=== PATIENT | male | born 1935 | race Caucasian/White ===

== ENCOUNTER 2023-01-02 15:31 | Inpatient (IN) | payer MEDICARE ==
[~2023-01-02] VITALS: Ht 177.8 cm; Wt 77.1 kg
[2023-01-02] MEDS ORDERED: SODIUM CHLORIDE 0.9% 1000ML 1,000 ML IV STA (15:47)
[2023-01-02 16:13] LABS: BASOPHILS % 0.2 % (0.0-1.0); EOSINOPHILS % 0.1 % (0.0-6.0); HEMATOCRIT 47.5 % (38.2-49.6); HEMOGLOBIN 17.2 g/dL (14.0-18.0); LYMPHOCYTES # (AUTO) 2.2 (1.0-3.2); LYMPHOCYTES % 17.6 % (18.0-39.1); MEAN CORPUSCULAR HEMOGLOBIN 34.5 pg (28-32); MEAN CORPUSCULAR HGB CONC 36.2 g/dL (31-35); MEAN CORPUSCULAR VOLUME 95.4 fL (81-99); MONOCYTES # (AUTO) 0.7 (0.2-0.8); MONOCYTES % 5.4 % (4.4-11.3); NEUTROPHILS # (AUTO) 9.7 (2.1-6.9); NEUTROPHILS % 76.3 % (38.7-80.0); PLATELET COUNT 269 x10e3/uL (140-360); RED BLOOD COUNT 4.98 x10e6/uL (4.3-5.7); RED CELL DISTRIBUTION WIDTH 11.9 % (11.7-14.4)
[2023-01-02 16:22] LABS: INR 1.05; PROTHROMBIN TIME 14.2 seconds (11.9-14.5)
[2023-01-02 16:33] LABS: ALANINE AMINOTRANSFERASE 69 IU/L (0-55); ALBUMIN 3.6 g/dL (3.5-5.0); ALBUMIN/GLOBULIN RATIO 0.9 (0.8-2.0); ALKALINE PHOSPHATASE 139 IU/L (40-150); ANION GAP 25.2 mmol/L (8-16); BLOOD UREA NITROGEN 29 mg/dL (7-26); BUN/CREATININE RATIO 28 (6-25); CALCIUM 9.6 mg/dL (8.4-10.2); CARBON DIOXIDE 17 mmol/L (22-29); CHLORIDE 99 mmol/L (98-107); CREATINE KINASE 162 IU/L (30-200); CREATININE, SERUM 1.03 mg/dL (0.72-1.25); GLUCOSE 181 mg/dL (74-118); LIPASE 21 U/L (8-78); MAGNESIUM 1.8 MG/DL (1.3-2.1); POTASSIUM 3.2 mmol/L (3.5-5.1); SODIUM 138 mmol/L (136-145)
[2023-01-02] MEDS ORDERED: IOPAMIDOL 610MG/1ML 300 MG/ML VIAL IV ONE (16:56)
[2023-01-02] MEDS ORDERED: KETOROLAC TROMETHAMINE 30 MG/ML VIAL ONE (18:00)
[2023-01-02] MEDS ORDERED: SODIUM CHLORIDE FLUSH 10 ML SYR INJ PRN (19:00)
[2023-01-02 20:40] VITALS: BP 127/89
[2023-01-02 21:00] VITALS: BP 127/89
[2023-01-02] MEDS: Morphine 2mg Syringe 2 MG/ML SYR IV PRN (22:47)
[2023-01-02] MEDS: ONDANSETRON HCL INJ 2MG/ML 2ML 2 MG/ML VIAL IV PRN (22:47)
[2023-01-02] MEDS ORDERED: ESCITALOPRAM OX10 MG PO (23:05)
[2023-01-02] MEDS ORDERED: ESIDRIX25 MG PO (23:05)
[2023-01-02] MEDS ORDERED: METFORMIN HCL500 MG PO (23:05)
[2023-01-02] MEDS ORDERED: LOSARTAN POTASS25 MG PO (23:05)
[2023-01-02] MEDS ORDERED: DONEPEZIL HCL10 MG PO (23:05)
[2023-01-02] MEDS ORDERED: MEMANTINE HCL10 MG PO (23:05)
[2023-01-03] VITALS (7 sets, daily range): BP systolic 110–147; BP diastolic 61–77
[2023-01-03 01:40] LABS: CREATINE KINASE 220 IU/L (30-200)
[2023-01-03 06:11] LABS: BASOPHILS % 0.3 % (0.0-1.0); EOSINOPHILS % 0.2 % (0.0-6.0); HEMATOCRIT 47.3 % (38.2-49.6); LYMPHOCYTES # (AUTO) 1.5 (1.0-3.2); LYMPHOCYTES % 16.1 % (18.0-39.1); MEAN CORPUSCULAR HGB CONC 33.8 g/dL (31-35); MEAN CORPUSCULAR VOLUME 100.4 fL (81-99); MONOCYTES # (AUTO) 0.7 (0.2-0.8); MONOCYTES % 7.3 % (4.4-11.3); NEUTROPHILS # (AUTO) 6.9 (2.1-6.9); NEUTROPHILS % 75.6 % (38.7-80.0); PLATELET COUNT 230 x10e3/uL (140-360); RED BLOOD COUNT 4.71 x10e6/uL (4.3-5.7); RED CELL DISTRIBUTION WIDTH 11.8 % (11.7-14.4)
[2023-01-03 06:48] LABS: ALBUMIN 3.1 g/dL (3.5-5.0); ALBUMIN/GLOBULIN RATIO 0.8 (0.8-2.0); ANION GAP 14.7 mmol/L (8-16); CREATININE, SERUM 1.04 mg/dL (0.72-1.25)
[2023-01-03 06:52] LABS: POTASSIUM 2.7 mmol/L (3.5-5.1)
[2023-01-03] MEDS ORDERED: POTASSIUM CHLORIDE 20 MEQ TAB CR PO ONE ×2 (08:30→10:30)
[2023-01-03] MEDS ORDERED: HYDRALAZINE HCL 20 MG/ML VIAL IV PRN (09:00)
[2023-01-03] MEDS ORDERED: SODIUM CHLORIDE 0.9% 250ML 250 ML ONE (10:34)
[2023-01-03] MEDS: ESCITALOPRAM OXALATE 10 MG TAB PO SCH (10:51)
[2023-01-03] MEDS: MEMANTINE 10 MG TAB PO SCH (10:51)
[2023-01-03] MEDS: SENNA-S TABLET PO SCH ×3 (10:52→21:37)
[2023-01-03] MEDS: LOSARTAN POTASSIUM 25 MG TAB PO SCH (10:52)
[2023-01-03 11:30] LABS: CLARITY,URINE SL CLOUDY (CLEAR); COLOR,URINE YELLOW (YELLOW); LEUKOCYTE ESTERASE ,URINE NEGATIVE (NEGATIVE); NITRITE,URINE NEGATIVE (NEGATIVE); PROTEIN,URINE DIPSTICK 2+ (NEGATIVE)
[2023-01-03 11:31] LABS: BACTERIA,URINE FEW /HPF; EPITHELIAL CELLS,URINE FEW /LPF; KETONES,URINE 2+ (NEGATIVE); WBC,URINE (MAN) 21-50 /HPF (0-5)
[2023-01-03 13:26] LABS: CREATINE KINASE 206 IU/L (30-200)
[2023-01-03] MEDS: DONEPEZIL HCL 5 MG TAB PO SCH (21:36)
[2023-01-04] VITALS (9 sets, daily range): BP systolic 121–149; BP diastolic 59–78
[2023-01-04 05:27] LABS: BASOPHILS % 0.3 % (0.0-1.0); EOSINOPHILS # (AUTO) 0.1 (0.0-0.4); EOSINOPHILS % 0.8 % (0.0-6.0); HEMOGLOBIN 15.4 g/dL (14.0-18.0); LYMPHOCYTES # (AUTO) 1.2 (1.0-3.2); LYMPHOCYTES % 14.9 % (18.0-39.1); MEAN CORPUSCULAR HEMOGLOBIN 33.8 pg (28-32); MEAN CORPUSCULAR HGB CONC 34.2 g/dL (31-35); MEAN CORPUSCULAR VOLUME 98.7 fL (81-99); MONOCYTES # (AUTO) 0.8 (0.2-0.8); MONOCYTES % 10.1 % (4.4-11.3); NEUTROPHILS # (AUTO) 5.8 (2.1-6.9); NEUTROPHILS % 73.4 % (38.7-80.0); PLATELET COUNT 219 x10e3/uL (140-360); RED BLOOD COUNT 4.56 x10e6/uL (4.3-5.7); RED CELL DISTRIBUTION WIDTH 12.1 % (11.7-14.4)
[2023-01-04 05:53] LABS: ALBUMIN 2.8 g/dL (3.5-5.0); ALBUMIN/GLOBULIN RATIO 0.8 (0.8-2.0); ANION GAP 15.1 mmol/L (8-16); CALCIUM 8.9 mg/dL (8.4-10.2); CREATININE, SERUM 0.89 mg/dL (0.72-1.25); MAGNESIUM 1.8 MG/DL (1.3-2.1); PHOSPHORUS 2.5 MG/DL (2.3-4.7); POTASSIUM 3.1 mmol/L (3.5-5.1)
[2023-01-04 06:16] LABS: THYROID STIMULATING HORMONE 0.252 uIU/mL (0.350-4.940)
[2023-01-04] MEDS ORDERED: BISACODYL 10 MG SUPP PR PRN (08:45)
[2023-01-04] MEDS ORDERED: MAGNESIUM HYDROXIDE 30 ML UDC PO PRN (08:45)
[2023-01-04] MEDS ORDERED: POTASSIUM CHLORIDE 10MEQ EA PO ONE (09:30)
[2023-01-04] MEDS: ONDANSETRON HCL INJ 2MG/ML 2ML 2 MG/ML VIAL IV PRN ×2 (09:36→15:39)
[2023-01-04] MEDS: Morphine 2mg Syringe 2 MG/ML SYR IV PRN ×3 (09:36→23:23)
[2023-01-04] MEDS: SENNA-S TABLET PO SCH ×2 (12:03→21:29)
[2023-01-04] MEDS: HYDROCODONE/APAP 7.5MG-325MG 1 EA TAB PO PRN (12:03)
[2023-01-04] MEDS: ESCITALOPRAM OXALATE 10 MG TAB PO SCH (12:03)
[2023-01-04] MEDS: MEMANTINE 10 MG TAB PO SCH (12:03)
[2023-01-04] MEDS: LOSARTAN POTASSIUM 25 MG TAB PO SCH (12:04)
[2023-01-04] MEDS: POLYETHYLENE GLYCOL 3350 17 GM PACK PO SCH ×2 (12:05→17:52)
[2023-01-04] MEDS: DONEPEZIL HCL 5 MG TAB PO SCH (21:29)
[2023-01-05] VITALS (7 sets, daily range): BP systolic 123–159; BP diastolic 64–90
[2023-01-05] MEDS: POLYETHYLENE GLYCOL 3350 17 GM PACK PO SCH ×2 (09:00→16:26)
[2023-01-05] MEDS: LOSARTAN POTASSIUM 25 MG TAB PO SCH (09:03)
[2023-01-05] MEDS: SENNA-S TABLET PO SCH ×2 (09:03→21:19)
[2023-01-05] MEDS: MEMANTINE 10 MG TAB PO SCH ×2 (09:03→16:28)
[2023-01-05] MEDS: ESCITALOPRAM OXALATE 10 MG TAB PO SCH (09:03)
[2023-01-05] MEDS ORDERED: QUETIAPINE FUMARATE 25 MG TAB PO PRN (09:30)
[2023-01-05] MEDS: HYDROCODONE/APAP 7.5MG-325MG 1 EA TAB PO PRN ×2 (12:54→21:22)
[2023-01-05] MEDS: TAMSULOSIN HCL 0.4 MG CAP PO SCH (16:28)
[2023-01-05] MEDS: QUETIAPINE FUMARATE 25 MG TAB PO SCH (21:20)
[2023-01-05] MEDS: DONEPEZIL HCL 5 MG TAB PO SCH (21:20)
[2023-01-06] VITALS (7 sets, daily range): BP systolic 113–137; BP diastolic 59–73
[2023-01-06 04:57] LABS: BASOPHILS % 0.8 % (0.0-1.0); EOSINOPHILS # (AUTO) 0.1 (0.0-0.4); EOSINOPHILS % 2.7 % (0.0-6.0); HEMATOCRIT 46.1 % (38.2-49.6); HEMOGLOBIN 15.3 g/dL (14.0-18.0); LYMPHOCYTES # (AUTO) 1.7 (1.0-3.2); LYMPHOCYTES % 31.8 % (18.0-39.1); MEAN CORPUSCULAR HGB CONC 33.2 g/dL (31-35); MEAN CORPUSCULAR VOLUME 102.4 fL (81-99); MONOCYTES # (AUTO) 0.5 (0.2-0.8); NEUTROPHILS # (AUTO) 2.9 (2.1-6.9); NEUTROPHILS % 54.3 % (38.7-80.0); PLATELET COUNT 209 x10e3/uL (140-360); RED CELL DISTRIBUTION WIDTH 11.7 % (11.7-14.4)
[2023-01-06 05:18] LABS: ANION GAP 13.4 mmol/L (8-16); CALCIUM 8.9 mg/dL (8.4-10.2); CREATININE, SERUM 0.85 mg/dL (0.72-1.25); POTASSIUM 3.4 mmol/L (3.5-5.1)
[2023-01-06] MEDS ORDERED: POTASSIUM CHLORIDE 10MEQ EA PO ONE ×5 (08:00→16:00)
[2023-01-06] MEDS: POLYETHYLENE GLYCOL 3350 17 GM PACK PO SCH ×2 (08:59→16:41)
[2023-01-06] MEDS: MEMANTINE 10 MG TAB PO SCH ×2 (09:06→16:44)
[2023-01-06] MEDS: LOSARTAN POTASSIUM 25 MG TAB PO SCH (09:06)
[2023-01-06] MEDS: SENNA-S TABLET PO SCH ×2 (09:06→20:01)
[2023-01-06] MEDS: ESCITALOPRAM OXALATE 10 MG TAB PO SCH (09:06)
[2023-01-06] MEDS: HYDROCODONE/APAP 7.5MG-325MG 1 EA TAB PO PRN ×2 (12:43→22:09)
[2023-01-06] MEDS: TAMSULOSIN HCL 0.4 MG CAP PO SCH (16:44)
[2023-01-06] MEDS: QUETIAPINE FUMARATE 25 MG TAB PO SCH (20:01)
[2023-01-06] MEDS: DONEPEZIL HCL 5 MG TAB PO SCH (20:01)
[2023-01-07] VITALS (7 sets, daily range): BP systolic 124–154; BP diastolic 69–85
[2023-01-07] MEDS: LOSARTAN POTASSIUM 25 MG TAB PO SCH (09:00)
[2023-01-07] MEDS ORDERED: POTASSIUM CHLORIDE 10MEQ EA PO ONE (09:30)
[2023-01-07] MEDS: MEMANTINE 10 MG TAB PO SCH ×2 (10:38→18:39)
[2023-01-07] MEDS: ESCITALOPRAM OXALATE 10 MG TAB PO SCH (10:38)
[2023-01-07] MEDS: POLYETHYLENE GLYCOL 3350 17 GM PACK PO SCH ×2 (10:41→18:39)
[2023-01-07] MEDS: SENNA-S TABLET PO SCH ×2 (10:41→20:29)
[2023-01-07] MEDS ORDERED: ONDANSETRON HCL 4 MG ORAL DISINTEGRATING TAB PO PRN (11:15)
[2023-01-07] MEDS: TAMSULOSIN HCL 0.4 MG CAP PO SCH (18:39)
[2023-01-07] MEDS: QUETIAPINE FUMARATE 25 MG TAB PO SCH (20:28)
[2023-01-07] MEDS: DONEPEZIL HCL 5 MG TAB PO SCH (20:29)
[2023-01-08] MEDS: HYDROCODONE/APAP 7.5MG-325MG 1 EA TAB PO PRN (00:51)
[2023-01-08 04:00] VITALS: BP 146/81
[2023-01-08 07:37] VITALS: BP 118/70
[2023-01-08] MEDS ORDERED: MEMANTINE HCL10 MG PO (08:35)
[2023-01-08] MEDS: MEMANTINE 10 MG TAB PO SCH ×2 (11:15→16:51)
[2023-01-08] MEDS: POLYETHYLENE GLYCOL 3350 17 GM PACK PO SCH ×2 (11:15→16:51)
[2023-01-08] MEDS: ESCITALOPRAM OXALATE 10 MG TAB PO SCH (11:15)
[2023-01-08] MEDS: SENNA-S TABLET PO SCH (11:15)
[2023-01-08] MEDS: LOSARTAN POTASSIUM 25 MG TAB PO SCH (11:16)
[2023-01-08 11:29] VITALS: BP 138/76
[2023-01-08] MEDS: TAMSULOSIN HCL 0.4 MG CAP PO SCH (16:51)
== END 2023-01-08 17:47 | disposition hospice, home (50) | DRG 690 ==
LOC: ER 15:37 → ERHOLD 19:02 → MED/SURG 20:15
PROVIDERS: ADMIT Internal Medicine; ATTEND Internal Medicine
DX: N39.0 Urinary tract infection, site not specified (principal); M48.56XA Collapsed vertebra, not elsewhere classified, lumbar region, initial encounter for fracture; E44.0 Moderate protein-calorie malnutrition; K59.00 Constipation, unspecified; Z74.09 Other reduced mobility; E87.6 Hypokalemia; E86.0 Dehydration; G30.9 Alzheimer's disease, unspecified; F02.80 Dementia in other diseases classified elsewhere, unspecified severity, without behavioral disturbance, psychotic disturbance, mood disturbance, and anxiety; Z68.24 Body mass index [BMI] 24.0-24.9, adult
CPT/HCPCS: 36415; 71045; 72148; 74177; 80048; 80053; 81001; 82550; 82553; 83036; 83690; 83735; 83880; 84100; 84443; 84484; 85025; 85610; 85730; 87086; 93005; 94799; 99252; 99285; J0696; J1885; J2270; J2405; J7030; J7050